=== PATIENT | female | born 1950 | race Caucasian/White ===

== ENCOUNTER 2020-06-23 10:55 | Emergency (ER) | payer MEDICARE ==
[~2020-06-23] VITALS: Ht 162.6 cm; Wt 139.0 kg
[~2020-06-23 10:55] MED LIST: AMLO1CAP54 PO; AMLO1TAB95 PO; ASPI325T11 PO; ASPI81TA59 PO; CARV25TA PO; CARV25TA2 PO; ENOX150D3 SQ; ESOM40CA PO; FAMO20VI3 IVP; GLYB5TAB3 PO; HYDR-2145 PO; LEVO137T2 PO; METF10007 PO; MORP2CAR IV; ONDA4VIA56 IV
[2020-06-23 10:58] VITALS: BP 153/74
--- NOTE | 2020-06-23 11:10 | PHYS DOC ---
Past History Past Medical History: Diabetes, Hypertension, UTI, Other Past Surgical History: Cholecystectomy, Tonsillectomy Smoking: Non-smoker Alcohol Use: None Drug Use: None Adult General Chief Complaint Chief Complaint: SHORTNESS OF BREATH HPI HPI Patient is a 69-year-old female who presents for Covid symptoms. She is a known Covid positive patient, states she was tested and confirmed + June 15. She reports being asymptomatic today she found out but the following day started exhibiting URI-like symptoms such as rhinorrhea, postnasal drip, dry nonprod uctive cough and generalized fatigue and muscle aches. She lives at home with her granddaughter who is also positive. She has been afebrile throughout entirety of illness, reports x1 episode of nonbloody nonbilious emesis since symptom onset without any other concerning signs or symptoms of disease. No falls, no lightheadedness or dizziness, no chest pain, increased shortness of breath past baseline but otherwise no other concerning signs or symptoms such as hemoptysis. She is currently being treated for noninsulin-dependent type 2 diabetes, high blood pressure and hyper cholesterolemia, she currently takes a baby aspirin daily and has been adherent to all daily medications. She presents today for ongoing fatigue Review of Systems Review of Systems Fourteen body systems of review of systems have been reviewed. See HPI for pertinent positives and negative responses, other mcneil all other systems are negative, non-pertinent or non-contributory Allergies Allergies Allergies Coded Allergies Type Severity Reaction Last Updated Verified codeine Adverse Reaction Intermediate VOMITING 01/09/16 No Physical Exam Physical Exam Constitutional: Well developed, obese, no acute distress, ambulatory but does appear uncomfortable HENT: Normocephalic, atraumatic, bilateral external ears normal, oropharynx dry with postnasal drip present, no oral exudates, nose normal. Eyes: PERRLA, EOMI, conjunctiva normal, no discharge. Neck: Normal range of motion, no tenderness, supple, no stridor. Cardiovascular: Heart rate regular, sinus rhythm, no murmurs rubs or gallops Lungs & Thorax: Bilateral breath sounds clear to auscultation, no respiratory distress or accessory muscle use Abdomen: Bowel sounds normal, soft, no tenderness, no masses, no pulsatile masses. Nonsurgical abdomen, no peritoneal signs Skin: Warm, dry, no erythema, no rash. Back: No tenderness, no CVA tenderness. Extremities: No tenderness, no cyanosis, no clubbing, ROM intact, no edema. Neurologic: Alert and oriented X 3, grossly normal motor & sensory function, no focal deficits noted. Psychologic: Affect normal, judgement normal, depressed mood Current Patient Data Vital Signs Vital Signs Date Time Temp Pulse Resp B/P (MAP) Pulse Ox O2 Delivery O2 Flow Rate FiO2 06/23/20 10:55 98.6 84 20 153/74 (100) 96 Room Air EKG EKG EKG ordered and interpreted by myself at 1124 hrs. as sinus rhythm at 79 bpm, QRS 120 prolonged QTC at 476 otherwise intervals unremarkable, left axis deviation, nonspecific T wave abnormality in lead III without prior EKG to compare, right bundle branch block present with intraventricular conduction delay, no acute ischemic findings, no STEMI Radiology/Procedures Radiology/Procedures Chest AP portable at 1056: Reason for examination: Short of breath. Covid. Comparison is made to previous study dated 08/30/2015. The heart size is normal. Mediastinum is unremarkable. Lung aguilar however show mild hazy groundglass infiltrates bilaterally which are predominantly basilar. No gross pleural effusions are seen. No acute bony abnormalities are present. IMPRESSION: Mild groundglass infiltrates bilaterally predominantly at the bases. Electronically signed by: Jessy Grande MD (06/23/2020 12:06 PM) [id number] Heart Score HEART Score for Chest Pain: HEART Score for Chest Pain Response (Comments) Value History Slighlty/Non-Suspicious 0 ECG Normal 0 Age > 65 2 Risk Factors >3 Risk Factors or Hx CAD 2 Total 4 Risk Factors: Risk Factors: DM, Current or recent (<one month) smoker, HTN, HLP, family history of CAD, obesity. Risk Scores: Risk Factors: DM, Current or recent (<one month) smoker, HTN, HLP, family history of CAD, obesity. Course & Med Decision Making Course & Med Decision Making Pertinent Labs and Imaging studies reviewed. (See chart for details) Discussed most likely diagnosis of symptomatic COVID-19 infection. I reviewed EKG and imaging findings with patient that was grossly negative. Further diagnostic work-up while in ER setting discussed with patient at length. Joint decision to defer and continue supportive care and outpatient self quarantine setting given that she is afebrile, hemodynamically stable without any overt respiratory distress Patient was advised and educated on importance of close outpatient follow-up when appropriate. I advised her to call primary care physician as soon as possible to discuss following up in outpatient setting after ER departure for repeat examination and evaluation. Strict return precautions were discussed at length with good understanding by patient who is able to restate plan and concerning signs or symptoms that should prompt immediate medical attention. All questions and concerns addressed prior to ER departure Dragon Disclaimer Dragon Disclaimer This electronic medical record was generated, in whole or in part, using a voice recognition dictation system. Departure Departure: Impression: Primary Impression: COVID-19 Disposition: 01 DC HOME SELF CARE/HOMELESS Condition: STABLE Referrals: ALIN WRIGHT MD (PCP) Patient Instructions: Dehydration, Adult Additional Instructions: You were evaluated in the Emergency Department today for a cough. Your evaluation suggests a viral infection such as Coronavirus. It is important that you continue to self isolate and practice good hygiene at home. Please follow up with your primary care physician as discussed. Return to the Emergency Department if you experience worsening cough, fever, shortness of breath, recurrent vomiting, lethargy, or any other concerning sym ptoms. Thank you for choosing us for your care. Home Care Instructions for Patients with Mild Respiratory Infection Most people with respiratory infections like colds, the flu, and Coronavirus Disease (COVID-19) will have mild illness and can get better with appropriate home care and without the need to see a provider. People who are elderly, , or have a weak immune system, or other medical problem are at higher risk of more serious illness or complications. It is recommended that they carefully monitor their symptoms closely and seek medical care early if their symptoms get worse. Treatment There is no specific treatment for most viruses including those that that cause the common cold and those that cause COVID-19. Sometimes there is treatment for the viruses that cause influenza if given early. Antibiotics treat infections caused by bacteria, but they do not work against viruses.Most people recover on their own from these viruses, including COVID-19. Here are steps that you can take to help you get better: Rest Drink plenty of fluids Take tyxu-nap-komtack cold and flu medications to reduce fever and pain. Follow the instructions on the package, unless your doctor gave you instructions. Note that these medicines do not ``cure the illness and therefore do not stop you from spreading germs. Children should not be given medication that contains aspirin (acetylsalicylic acid) because it can cause a rare but serious illness called Tonny syndrome. Medicines without aspirin include acetaminophen (Tylenol) and ibuprofen (Advil, Motrin). Children younger than age 2 should not be given any ktky-hlr-nycjaiu cold medications without first speaking with a doctor.Seeking Medical Care You should seek medical care if you are not getting better within a week, or if your symptoms get worse. If you are elderly, , have a weak immune system, or other medical problems, call your doctor right away. It is best to call ahead of time to discuss your symptoms, if possible. This may allow you to receive the advice you need by phone. By avoiding a visit to a healthcare facility, you protect yourself from getting a new infection and pr otect others from catching an infection from you. If you do visit a healthcare facility, put on a mask to protect other patients and staff. It is recommended that you seek medical care for serious symptoms, such as: People with potentially life-threatening symptoms should call 911. If possible, put on a facemask before emergency medical services arrive. PROTECTING OTHERS Follow the steps below to help prevent the disease from spreading to people in your home and community.Stay home when you are sick Stay home - do not go to work, school, or public areas. Stay home for at least 24 hours after your symptoms have gone away without the use of fever-reducing medicines. If you must leave home while you are sick, try to avoid using public transportation, ride-shares, and taxis. Wear a mask if possible. Separate yourself from other people and animals in your home Stay in a specific room and away from other people in your home as much as possible. Use a separate bathroom, if available. Try to stay at least 6 feet from others. Do not handle pets or other animals while you are sick. Cover your coughs and sneezes Cover your mouth and nose with a tissue when you cough or sneeze. Throw used tissues in a lined trash can; immediately wash your hands. Avoid sharing personal household items Do not share dishes, drinking glasses, cups, eating utensils, towels, or bedding with other people or pets in your home. Wash them thoroughly with soap and water after use. Clean your hands often Wash your hands often with soap and water for at least 20 seconds. If soap and water are not available, clean your hands with an alcohol-based hand helicopter crew chief that contains at least 60% alcohol, covering all surfaces of your hands and rubbing them together until they feel dry. Use soap and water if your hands are visibly dirty. Clean all ``high-touch surfaces every day High touch surfaces include counters, tabletops, doorknobs, bathroom fixtures, toilets, phones, keyboards, tablets, and bedside tables. Also, clean any surfaces that may have body fluids on them. Use a household cleaning spray or wipe, according to the product label instructions. COVID-19 (Novel Coronavirus) FAQs for Inquiring Patients What do you do if you are worried that you have been exposed to COVID-19 but are without any symptoms? If you develop symptoms that may indicate an infection, contact your physician. These include fever, cough, and shortness of breath. Testing is not available for asymptomatic individuals, regardless of travel history. To reduce the chance of getting sick use general infection prevention measures such as hand washing, covering your mouth and nose when you cough or sneeze and discarding any tissues carefully, and staying home when you are sick.Can exceptions be made for patients who are really worried and want to be tested? Presently testing is available through all local Department of Public Health and Centers for Disease Control and Prevention in addition to numerous Urgent Care facilities and Pharmacies. Only patients who meet the updated COVID-19 PUI definition may be tested. We do not control or set the PUI definition or evaluation criteria. We are unable to provide testing to patients who do not meet the strict criteria. Should patients cancel or postpone an upcoming trip? The decision about travel is personal and should be made in the context of a persons underlying health conditions, reason for travel and necessity of travel. Travel insurance generally does not cover cancellations due to concerns of infectious disease outbreaks. The Center for Disease Control has a section on travel notices. Situations are changing frequently and you should monitor the site for updates. Should situations change rapidly in a foreign country while they are traveling, you could be subject to quarantine or restrictions upon return to the [place]. It is best to have a plan on how to return urgently if needed during a trip abroad. Because of how air circulates and is filtered on airplanes, most viruses do not spread easily on airplanes. CDC does not recommend use of facemasks during air travel.What other general precautions are advised? Patients should be instructed to: Avoid close contact with people who are sick. Avoid touching your eyes, nose and mouth. Stay home from work or school when they are sick. If you have a fever, you should remain home until 24 hours after fever resolves. Clean and disinfect frequently touched objects and surfaces using a regular household cleaning spray or wipe. Sneeze/cough into their elbow, not your hand. Practice frequent hand hygiene with soap and water (at least 20 seconds) or alcohol-based hand rub. Consider avoiding crowded places or mass gatherings, especially if you are immunocompromised or have chronic lung disease. There is no evidence to support transmission of COVID-19 from goods imported from [place]. Are there any special precautions that are recommended if I am ? There is not yet any information available about the susceptibility of women to COVID-19. As a general rule, women may be more susceptible to viral respiratory infections and at risk for more severe illness. The CDC guidance for COVID-19 and has answers to questions about transmission during delivery, as well as other situations. Should food, water, or medications be stockpiled? Should people telecommute? The CDC has excellent information on this. Please visit the CDCs guidance for getting your household ready for COVID-19. What should I do if I start feeling sick at work? And what should the workplace do for anyone exposed? Anyone who is sick with a fever and cough should stay home from work until at least 24 hours after resolution of fever, regardless of concerns for COVID-19. It is still influenza (flu) season and influenza remains far more common. TED BERRY DO Jun 23, 2020 11:10
--- NOTE | 2020-06-23 12:09 | RAD ---
Chest AP portable at 1056: Reason for examination: Short of breath. Covid. Comparison is made to previous study dated 08/30/2015. The heart size is normal. Mediastinum is unremarkable. Lung aguilar however show mild hazy groundglass infiltrates bilaterally which are predominantly basilar. No gross pleural effusions are seen. No acute bony abnormalities are present. IMPRESSION: Mild groundglass infiltrates bilaterally predominantly at the bases. Electronically signed by: Jessy Grande MD (06/23/2020 12:06 PM) [id number]
--- NOTE | 2020-06-24 08:38 | EKG ---
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
== END 2020-06-23 12:30 | disposition home or self-care (01) ==
LOC: ER 10:55
DX: U07.1 COVID-19 (principal); E11.9 Type 2 diabetes mellitus without complications; I10 Essential (primary) hypertension; E78.00 Pure hypercholesterolemia, unspecified; Z87.440 Personal history of urinary (tract) infections; Z90.49 Acquired absence of other specified parts of digestive tract; Z79.82 Long term (current) use of aspirin; Z88.5 Allergy status to narcotic agent
CPT/HCPCS: 71045; 93005; 99283

== ENCOUNTER → 2020-10-11 | Outpatient (CLI) | payer MEDICARE, OTHER ==
--- NOTE | 2020-10-11 18:58 | RAD ---
Examination: Bilateral digital diagnostic mammogram. INDICATION: 70-year-old woman presents for delayed follow-up of a probably benign right breast mass a t the 6:00 position 6 cm from the nipple evaluated on right breast ultrasound from 01/04/2019. She is also due for screening. COMPARISON: Limited right breast ultrasound of 01/04/2019, bilateral mammogram of 11/26/2018. TECHNIQUE: CC and MLO views of both breasts were obtained with 2-D and 3-D technique and reviewed wit h computer-aided detection. FINDINGS: Scattered fibroglandular densities. No developing mass, suspicious calcification or architectural distortion is seen in either breast. There is a nodular parenchymal pattern to the right breast and includes a 7 mm oval mass in the infer ior posterior right breast that has not changed significantly in the interval. Since there has been n o significant mammographic interval change, additional imaging by targeted ultrasound is deferred in favor of a short-term follow-up to complete 2 years of imaging surveillance which could be performed 3 months from now. IMPRESSION: Probably benign findings in the right breast. Recommend a follow-up right breast ultrasound in 3 months. BI-RADS Category 3 Probably benign findings Patient entered into a reminder system with targeted due date for next mammogram Electronically signed by: Ashley Jackson MD (10/11/2020 6:56 PM) [id number]
== END ==
LOC: MAMMO 13:40
PROVIDERS: ATTEND Family Medicine
DX: N63.10 Unspecified lump in the right breast, unspecified quadrant (principal)
CPT/HCPCS: 77066; G0279; 77062

== ENCOUNTER → 2021-07-17 | Outpatient (CLI) | payer OTHER ==
[~2021-07-17] MED LIST changes: +AMLO-54 PO; -AMLO1CAP54 PO
--- NOTE | 2021-07-17 15:14 | RAD ---
EXAM: Right breast sonogram. HISTORY: 70-year-old female presents for follow-up evaluation of findings within the right breast dem onstrate on a sonogram performed 01/04/2019. TECHNIQUE: Sonographic imaging of the right breast targeted to sites of mammographic nodularity and p rior sonographic abnormality was performed. COMPARISON: Mammogram dated 10/11/2020 and sonogram dated 01/04/2019. FINDINGS: There is a stable 6 mm cyst with suspected internal debris at the 6:00 position 5 cm from t he nipple. There is a focally dilated duct within the subareolar aspect of the right breast. No intra ductal lesion is seen. There are benign axillary lymph nodes. IMPRESSION: 1. 6 mm benign cyst at the 6:00 position and focally dilated duct within the subareolar location. No new suspicious sonographic finding. 2. BI-RADS Category 2: Benign finding(s). The patient will be due for bilateral mammography in 3 [facility] according to a previously established mammography interval. Electronically signed by: Suzette Fisher MD (07/17/2021 3:11 PM) [id number]
== END ==
LOC: US 14:44
PROVIDERS: ATTEND Family Medicine
DX: N60.01 Solitary cyst of right breast (principal); R92.2 Inconclusive mammogram
CPT/HCPCS: 76642